=== PATIENT | female | born 1960 | race African-American/Black ===

== ENCOUNTER 2018-07-15 09:58 | Emergency (ER) | payer BC ==
[~2018-07-15] VITALS: Ht 165.1 cm; Wt 106.6 kg
--- NOTE | ~2018-07-15 | EKG ---
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
[~2018-07-15 09:58] MED LIST: ACETAMINOPHEN-1 EAC1 PO; AMOXICILLIN 50500 M1 PO; DIOVAN HCT 1601 EAC1; DIOVAN320 MG PO; GUAIFEN-CODEIN120 ML PO; LIPITOR40 MG PO; MEDROLDOSEPACK PO; NORVASC10 MG PO; PREDNISONE 20 M20 MG PO; TIZANIDINE HCL4 MG PO; TRAMADOL 50 MG50 MG PO; ZPAK PO
[2018-07-15 10:54] LABS: ABSOLUTE NEUTROPHILS 4.6 thou/uL (1.4-8.2); HEMATOCRIT 38.1 % (37.0-47.0); HEMOGLOBIN 12.7 gm/dL (12.0-15.0); LYMPHOCYTES 35.3 % (24.0-44.0); MCH 27.4 pg (26.0-34.0); MCHC 33.3 g/dL (28.0-37.0); MCV 82.3 fL (80.0-100.0); PLATELET COUNT 199 thou/uL (150-400); POLYS 54.7 % (36.0-66.0); RBC 4.63 mil/uL (4.20-5.00); RDW 15.1 % (10.5-14.5); WBC 8.5 thou/uL (4.0-11.0)
[2018-07-15 11:09] LABS: ANION GAP 4 mmol/L (7-16); BUN 13 mg/dL (7-18); CALCIUM 9.7 mg/dL (8.5-10.1); CHLORIDE 104 mmol/L (98-107); CO2 30 mmol/L (21-32); CREATININE 1.1 mg/dL (0.6-1.0); GLUCOSE 100 mg/dL (74-106); POTASSIUM 3.7 mmol/L (3.5-5.1); SODIUM 138 mmol/L (136-145)
[2018-07-15 11:17] LABS: TROPONIN-I <0.06 ng/mL (<0.06)
[2018-07-15] MEDS ORDERED: MOBIC7.5 MG PO (13:14)
[2018-07-15] MEDS ORDERED: MEDROLDOSEPACK PO (13:14)
[2018-07-15 13:48] VITALS: BP 182/47
== END 2018-07-15 13:50 | disposition home or self-care (01) ==
LOC: ER 09:58
PROVIDERS: Nurse Practitioner Family
DX: M17.11 Unilateral primary osteoarthritis, right knee (principal); R06.00 Dyspnea, unspecified; I10 Essential (primary) hypertension; G47.30 Sleep apnea, unspecified

== ENCOUNTER 2019-12-12 15:09 | Emergency (ER) | payer BC, OTHER ==
[~2019-12-12] VITALS: Ht 165.1 cm; Wt 104.3 kg
[~2019-12-12 15:09] MED LIST changes: +MOBIC7.5 MG PO
[2019-12-12] MEDS ORDERED: LORCET 5-325 M1 EACH PO (15:38)
[2019-12-12] MEDS ORDERED: BENICAR40 MG PO (15:39)
[2019-12-12 15:55] LABS: ABSOLUTE NEUTROPHILS 5.2 thou/uL (1.4-8.2); BASOPHILS 0.7 % (0.0-2.0); HEMATOCRIT 37.2 % (37.0-47.0); HEMOGLOBIN 11.9 gm/dL (12.0-15.0); LYMPHOCYTES 30.6 % (24.0-44.0); MCH 26.1 pg (26.0-34.0); MCHC 31.9 g/dL (28.0-37.0); MCV 81.8 fL (80.0-100.0); PLATELET COUNT 214 thou/uL (150-400); POLYS 60.7 % (36.0-66.0); RBC 4.55 mil/uL (4.20-5.00); RDW 14.8 % (10.5-14.5); WBC 8.5 thou/uL (4.0-11.0)
[2019-12-12 16:01] LABS: ANION GAP 9 mmol/L (7-16); BUN 14 mg/dL (7-18); CALCIUM 9.5 mg/dL (8.5-10.1); CHLORIDE 102 mmol/L (98-107); CO2 29 mmol/L (21-32); CREATININE 0.9 mg/dL (0.6-1.0); GLUCOSE 92 mg/dL (74-106); POTASSIUM 3.8 mmol/L (3.5-5.1); SODIUM 140 mmol/L (136-145)
[2019-12-12 16:11] LABS: ALBUMIN 3.9 g/dL (3.4-5.0); SGOT 28 U/L (15-37); SGPT 44 U/L (30-65); TOTAL BILIRUBIN 0.5 mg/dL (<0.1-1.0); TROPONIN-I <0.06 ng/mL (<0.06)
--- NOTE | 2019-12-12 17:14 | EKG ---
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 12/12/19 1713 1511 10 Amandeep Negro MD, FACC /EPI
[2019-12-12] MEDS ORDERED: NORCO 5-325 TA1 EAC1 PO (17:32)
[2019-12-12 17:44] VITALS: BP 158/69
== END 2019-12-12 17:51 | disposition home or self-care (01) ==
LOC: ER 15:09
PROVIDERS: Physician Assistant
DX: R07.89 Other chest pain (principal); I10 Essential (primary) hypertension

== ENCOUNTER → 2020-01-16 | Outpatient (CLI) | payer BC, OTHER ==
[~2020-01-16] MED LIST changes: +BENICAR40 MG PO; +LORCET 5-325 M1 EACH PO; +NORCO 5-325 TA1 EAC1 PO
== END ==
LOC: SJCVCIMAG 10:18
DX: I11.9 Hypertensive heart disease without heart failure (principal); R07.9 Chest pain, unspecified; E78.5 Hyperlipidemia, unspecified; G47.33 Obstructive sleep apnea (adult) (pediatric)

== ENCOUNTER → 2020-10-26 | Outpatient (CLI) | payer BC | LOC: LAB 08:56 | PROVIDERS: ATTEND Family Medicine | DX: Z20.828 Contact with and (suspected) exposure to other viral communicable diseases (principal) ==

== ENCOUNTER → 2020-12-28 | Outpatient (CLI) | payer BC | LOC: SJCVCIMAG 12:19 | PROVIDERS: ATTEND Internal Medicine | DX: Z01.810 Encounter for preprocedural cardiovascular examination (principal); R06.00 Dyspnea, unspecified; Z86.718 Personal history of other venous thrombosis and embolism; Z86.711 Personal history of pulmonary embolism ==

== ENCOUNTER → 2021-01-18 | Outpatient (CLI) | payer BC | LOC: LAB 11:23 | PROVIDERS: ATTEND Internal Medicine | DX: Z01.812 Encounter for preprocedural laboratory examination (principal); Z20.822 Contact with and (suspected) exposure to COVID-19 ==